=== PATIENT | female | born 1955 | race Caucasian/White ===

== ENCOUNTER → 2023-11-07 10:08 | Outpatient (REF) | payer MEDICARE, OTHER, SELFPAY ==
[2023-11-07 10:59] LABS: % Basophils 0.8 % (0-2); % Eosinophils 2.7 % (0-6); % Immature Granulocytes 0.3 % (0-0.5); % Lymphocytes 25.6 % (20.5-51.1); % Neutrophils 61.6 % (42.2-75.2); Absolute Basophils 0.1 10^3/uL (0-0.2); Absolute Eosinophils 0.2 10^3/uL (0-0.7); Absolute Monocytes 0.7 10^3/uL (0.1-0.6); Absolute Neutrophils 4.9 10^3/uL (1.4-6.5); Hematocrit 40.2 % (37.0-47.0); Hemoglobin 13.5 g/dL (12.0-16.0); Mean Corp Hgb Conc. 33.6 g/dL (33.0-37.0); Mean Corpuscular Hgb 30.5 pg (27.0-31.0); Mean Platelet Volume 10.1 fL (7.4-10.4); Nucleated Red Blood Cells % 0 %; Platelet Count 268 10^3/uL (130-400); Red Blood Cell Count 4.42 10^6/uL (4.20-5.40); Red Cell Dist. Width 12.4 % (11.5-14.5); White Blood Cell Count 7.9 10^3/uL (4.8-10.8)
[2023-11-07 11:44] LABS: Blood Urea Nitrogen 19 mg/dl (7-17); Calcium 9.2 mg/dl (8.4-10.2); Carbon Dioxide 21 mmol/L (22-30); Chloride 106 mmol/L (98-107); Glucose 96 mg/dl (70-99); Potassium 4.4 mmol/L (3.5-5.1); Sodium 136 mmol/L (135-145); eGFR > 60.00
== END ==
LOC: REG 10:08
PROVIDERS: ATTENDING PHYSICIAN Orthopaedic Surgery Hand Surgery; FAMILY PHYSICIAN Family Medicine
DX: Z01.818 Encounter for other preprocedural examination (principal)
CPT/HCPCS: 36415; 80048; 85025; 93005

== ENCOUNTER → 2024-06-17 08:18 | Day surgery (SDC) | payer MEDICARE, OTHER, SELFPAY ==
[2024-06-17 10:43] LABS: Hematocrit 42.3 % (37.0-47.0); Hemoglobin 13.8 g/dL (12.0-16.0); Mean Corp Hgb Conc. 32.6 g/dL (33.0-37.0); Mean Corpuscular Hgb 30.4 pg (27.0-31.0); Mean Corpuscular Volume 93.2 fL (81.0-99.0); Mean Platelet Volume 9.7 fL (7.4-10.4); Platelet Count 298 10^3/uL (130-400); Red Blood Cell Count 4.54 10^6/uL (4.20-5.40); Red Cell Dist. Width 12.1 % (11.5-14.5); White Blood Cell Count 7.2 10^3/uL (4.8-10.8)
[2024-06-17 10:57] LABS: ALT (SGPT) 23 U/L (0-35); AST (SGOT) 21 U/L (14-36); Albumin 4.8 g/dl (3.5-5.0); Alkaline Phosphatase 95 U/L (38-126); Blood Urea Nitrogen 26 mg/dl (7-17); Calcium 9.9 mg/dl (8.4-10.2); Carbon Dioxide 25 mmol/L (22-30); Chloride 101 mmol/L (98-107); Glucose 96 mg/dl (70-99); Potassium 4.3 mmol/L (3.5-5.1); Sodium 141 mmol/L (135-145); Total Bilirubin 0.4 mg/dl (0.2-1.3); Total Protein 7.6 g/dl (6.3-8.2); eGFR > 60.00
[2024-06-17 11:18] LABS: Glycohemoglobin (HgbA1c) 5.2 % (4.0-5.6)
== END ==
LOC: SDSPAT 08:18
PROVIDERS: ATTENDING PHYSICIAN Orthopaedic Surgery; FAMILY PHYSICIAN Family Medicine; REFERRING PHYSICIAN Internal Medicine Cardiovascular Disease
DX: Z01.812 Encounter for preprocedural laboratory examination (principal)
CPT/HCPCS: 85027; 36415; 80053; 83036; 87070

== ENCOUNTER 2024-06-25 06:00 | Day surgery (SDC) | payer MEDICARE, OTHER, SELFPAY ==
--- NOTE | 2024-06-13 10:23 | VNURNOTE ---
Patient is scheduled for an elective L TERRANCE on 06/25/24- she is a same day patient with Dr Neff. Spoke with patient prior to surgery. Introduced role of [facility] Liaison. Patient reports that she lives with her spouse in a MULTI story home.
There are 2 steps to enter through garage and a flight of steps to the second floor.
There is a first floor set up with a bathroom and bedroom she will use.
She has a raised toilet seat, cane and rolling walker.
PCP is Dr Nicci Pratt.
Discussed [facility] joint protocol and post surgical plans.
Reviewed that she will have VN services initially and will then start outpatient PT.
Patient selects [facility] for home care needs and will go to [facility] for outpatient PT. Scheduled for 06/30.
Patient is in agreement with plan and states that her spouse will be home with her. Advised to bring RW day of surgery. Referral placed in [facility].
Plan: [facility] per [facility] joint protocol then outpt PT on 06/30
[2024-06-17 10:13] VITALS: BMI 33.3
[2024-06-18 10:31] VITALS: BMI 33.3
[2024-06-25] VITALS (25 sets, daily range): BP systolic 71–159; BP diastolic 36–102; PULSE 73–109; O2SAT 96
[2024-06-25] MEDS: CELEBREX 200 MG PO (06:11)
[2024-06-25] MEDS: TYLENOL 650 MG PO ×5 (06:11→23:32)
--- NOTE | 2024-06-25 08:40 | SUR.PHASEI ---
patient post op left total hip - spinal anesthesia. has sensation to toes on right - denies sensation on left at hip level and below. at 840 - slight movement of left toes and plantar flexion. sleeps if undisturbed.
[2024-06-25] MEDS: ANCEF 5 IV ×2 (11:14→18:29)
[2024-06-25] MEDS: NORMOSOL-R/PLASMALYTE-A 1000 IV (11:30)
[2024-06-25] MEDS: COMPAZINE 10 MG IV (11:53)
[2024-06-25] MEDS: ProAmatine 5 MG PO (12:58)
[2024-06-25] MEDS: TORADOL 30 MG IV (13:17)
--- NOTE | 2024-06-25 15:39 | W.PN.UPDATE ---
Update Note
Progress Note Update
The patient was initially scheduled to go home same day; however, due to symptomatic orthostasis, she will stay overnight.
L hip OA s/p L TERRANCE w/ Dr Neff 06/25/24
- s/p R TERRANCE, 10/2021, by Dr Neff
DVT prophylaxis - Eliquis 2.5 mg PO BID x4 weeks, b/l venous foot pumps
Orthostatic hypotension (symptomatic) - IVF running
- Midodrine ordered TID w/ SBP parameters
- Orthostatic VS q8h
HTN - diet controlled - monitor BP
Incomplete right bundle branch block
Left anterior fascicular block
PACs with occasional palpitations
- Monitor on tele
Left lower extremity DVT, 1983, provoked by left bunionectomy - start Eliquis
- Frequent and early ambulation as tolerated
- Plasma flow devices HIGHLY encouraged upon d/c
COPD with asthmatic component
Obstructive sleep apnea, non-compliant with CPAP
- Monitor O2
- IS
- Resume inhaler prn
- Add supplemental O2 HS
GERD and Goldsmith's esophagus - continue PPI
IBS with diarrhea - Colace ONLY initially while on post-surgical narcotics
Fibromyalgia - monitor pain and adjust meds prn
Hyperlipidemia
Coronary artery disease, non-obstructive on cardiac cath
Mild valvular disease
TIA, 2014, without residual deficits
Colon and gastric polyps
Diverticulosis with history of diverticulitis
Fatty liver disease
Gastroparesis
Restless leg syndrome
Multilevel degenerative disc disease
Remote migraines
Hypothyroidism
Uterine fibroids, status post partial hysterectomy
Lichen sclerosus
Osteopenia
Anti-cardiolipin antibody positive
Glaucoma
Depression
Anxiety
Insomnia
Obesity, BMI 33.3
Remote history of tobacco abuse.
[2024-06-25] MEDS: ROXICODONE 2.5 MG PO ×2 (17:16→23:40)
[2024-06-25] MEDS: CELEXA PO (18:29)
[2024-06-25] MEDS: NSS 1000 IV (18:29)
[2024-06-25] MEDS: SYNTHROID PO (18:31)
[2024-06-25] MEDS: PROTONIX PO (18:31)
[2024-06-25] MEDS: SINGULAIR PO (18:31)
[2024-06-25] MEDS: VITAMIN B-12 PO (18:31)
--- NOTE | 2024-06-25 18:39 | PTCARENOTE ---
Addendum entered by Shawna Head RN 06/25/24 19:22:
Patient placed on telemetry as ordered. Sinus rhythm to sinus tach.
Original Note:
Received patient from [facility] via stretcher in stable condition. Orthostatic vital signs done on arrival. Charted in worklist. Patient denied dizziness when standing and was asymptomatic. Voided in bedside commode on arrival. Right hip dressing with
small amount of drainage. Patient oriented to unit. Call massey in reach.
[2024-06-25] MEDS: ELIQUIS 2.5 MG PO (20:22)
[2024-06-25] MEDS: BACTROBAN 2% OINTMENT 1 APPLIC NASAL (20:22)
[2024-06-25] MEDS: COSOPT EYE DROPS 1 DROP BOTH EYES (20:43)
[2024-06-25] MEDS: XALATAN OPHTHALMIC SOLUTION 1 DROP BOTH EYES (20:43)
[2024-06-26] VITALS (7 sets, daily range): BP systolic 120–165; BP diastolic 58–79; PULSE 77–102; O2SAT 96–97
[2024-06-26] MEDS: ANCEF 5 IV (01:34)
[2024-06-26] MEDS: TYLENOL 650 MG PO ×3 (03:58→12:32)
[2024-06-26] MEDS: SYNTHROID 25 MCG PO (07:39)
[2024-06-26] MEDS: BACTROBAN 2% OINTMENT 1 APPLIC NASAL (08:46)
[2024-06-26] MEDS: PROTONIX 40 MG PO (08:48)
[2024-06-26] MEDS: VITAMIN D3 (cholecalciferol) 125 MCG PO (08:48)
[2024-06-26] MEDS: CELEXA 20 MG PO (08:48)
[2024-06-26] MEDS: COSOPT EYE DROPS 1 DROP BOTH EYES (08:48)
[2024-06-26] MEDS: VITAMIN B-12 1000 MCG PO (08:48)
[2024-06-26] MEDS: ELIQUIS 2.5 MG PO (08:48)
[2024-06-26] MEDS: SINGULAIR 10 MG PO (08:48)
[2024-06-26] MEDS: TRICOR 48 MG PO (08:53)
[2024-06-26] MEDS: ROXICODONE 2.5 MG PO (09:05)
--- NOTE | 2024-06-26 09:36 | W.PN.ORTHO ---
Today's Communication / Plan
-
Await PT and OT recs.
D/c later today if remaining clinically stable.
Assessment
.
Distal Motor Intact: Yes
Dressing:
Scant old incisional bleeding.
Assessment:
The patient was initially scheduled to go home same day; however, due to symptomatic orthostasis after surgery, she did stay overnight.
L hip OA s/p L TERRANCE w/ Dr Neff 06/25/24
- s/p R TERRANCE, 10/2021, by Dr Neff
DVT prophylaxis - Eliquis 2.5 mg PO BID x4 weeks, b/l venous foot pumps
Orthostatic hypotension (symptomatic) - s/p IVF
- Midodrine ordered TID w/ SBP parameters -> only needed 1x thankfully
- Orthostatic VS q8h stable by POD 1
HTN - diet controlled - BPs stable
Incomplete right bundle branch block
Left anterior fascicular block
PACs with occasional palpitations
- Rhythm stable on tele
Left lower extremity DVT, 1983, provoked by left bunionectomy - start Eliquis
- Frequent and early ambulation as tolerated
- Plasma flow devices HIGHLY encouraged upon d/c
COPD with asthmatic component
Obstructive sleep apnea, non-compliant with CPAP
- O2 stable on RA
- IS
- Resumed inhaler prn
- Added supplemental O2 HS while admitted
GERD and Goldsmith's esophagus - continue PPI
IBS with diarrhea - Colace ONLY initially while on post-surgical narcotics
Fibromyalgia - pain well controlled by POD 1
Hyperlipidemia
Coronary artery disease, non-obstructive on cardiac cath
Mild valvular disease
TIA, 2014, without residual deficits
Colon and gastric polyps
Diverticulosis with history of diverticulitis
Fatty liver disease
Gastroparesis
Restless leg syndrome
Multilevel degenerative disc disease
Remote migraines
Hypothyroidism
Uterine fibroids, status post partial hysterectomy
Lichen sclerosus
Osteopenia
Anti-cardiolipin antibody positive
Glaucoma
Depression
Anxiety
Insomnia
Obesity, BMI 33.3
Remote history of tobacco abuse.
Plan
.
Surgery / Date: Mady CARLOS w/ Dr Neff 06/25/24
DVT Prophylaxis: Other (Eliquis )
Activity:
Out of bed.
PT/OT
Discharge Plan: Home w/ Outpatient PT
Subjective
.
.:
Patient examined resting in her chair.
L hip pain overall well tolerated w/ minimal pain meds.
Denies any other new significant complaints.
Eager for potential d/c today.
Vital Signs and Labs
.
Vital Signs and Labs:
Temp Pulse Resp BP Pulse Ox
98.4 F 100 18 149/74 95
06/26/24 08:00 06/26/24 08:00 06/26/24 08:00 06/26/24 08:00 06/26/24 08:00
Non-invasive Hgb result: 12.4
Physical Exam
-
HEENT: No pallor, cyanosis, or jaundice. Throat clear.
NECK: Supple. No JVD.
RESPIRATORY: Lungs clear to auscultation.
CVS: S1, S2 normal. RRR.�
ABDOMEN: Soft, non-tender. No distension. Obese.
EXTREMITIES: Strength equal, no calf pain with palpation/dorsiflexion. Calves soft.
TILE LAYER DRAINAGE: AOx3. No focal deficits. balloon design printer grossly intact
--- NOTE | 2024-06-26 10:15 | CM ---
Reviewed the chart notes and spoke with the patient at the bedside. The patient resides with spouse in a two story home with three steps to enter. There is a first floor master bedroom. The patient has a rolling walker, cane, and a raised toilet
seat. The patient reports no VN or SNF in the past. [facility] The patient anticipates starting outpatient therapy on Sunday. No VN need. CM continues to be available to
patient/family and is monitoring medical plan for needs at discharge.
Plan: Discharge to home today. No additional needs identified at this time.
--- NOTE | 2024-06-26 12:33 | W.DS.TRANS ---
DC Summary - Thread Spooler
-
Discharge Instructions:
Discharge Diagnosis/Procedures L hip OA s/p L TERRANCE w/ Dr Neff 06/25/24
Diet Other diet
Additional Diets Diabetic carb controlled x1 week for wound
healing/infection prevention
Activity As tolerated,With Walker
Driving Restrictions Not until seen by your Dr
Bathing Restrictions OK to Shower
Other Services PT
Wound Care Dressing to be removed 1 week post-surgery.
Instructions:
Stand-Alone Forms: Total Hip/Knee Replacement D/C
Changes to Home Medications: Yes
Discharge Medications:
DC Medications w/original date entered in [facility]
albuterol sulfate 90 mcg/actuation aerosol inhaler 2 puff inhalation Q4HPRN PRN asthma 09/16/21
cholecalciferol (vitamin D3) 125 mcg (5,000 unit) disintegrating tablet 5,000 unit PO DAILY Supplement 09/16/21
citalopram 20 mg tablet 20 mg PO DAILY Mental Health/Anxiety 09/16/21
cyanocobalamin (vitamin B-12) 1,000 mcg tablet 1,000 mcg PO DAILY Supplement 09/16/21
fenofibrate 54 mg tablet 54 mg PO MOTH TRIGLYCERIDES 09/16/21
fluticasone propionate 50 mcg/actuation nasal spray,suspension 2 spray intranasal DAILYPRN PRN allergies 09/16/21
montelukast 10 mg tablet 10 mg PO DAILY ASTHMA 09/16/21
pantoprazole 40 mg tablet,delayed release 40 mg PO DAILY Gastrointestinal issue 09/16/21
clobetasol-emollient 0.05 % topical cream 1 applic topical DAILYPRN PRN skin issues 09/20/21
mupirocin 2 % topical ointment 1 applic intranasal BID #1 tube 09/20/21
acetaminophen 500 mg tablet (Tylenol Extra Strength) 1,000 mg (2 x 500 mg) PO Q6H ##0 10/12/21
Cbd Oil 1 dose sublingual PRN PRN sleep 06/18/24
alprazolam 0.25 mg tablet (Xanax) 0.25 mg PO BID PRN anxiety 06/18/24
cetirizine 10 mg capsule (Zyrtec) 10 mg PO DAILY PRN allergies 06/18/24
dorzolamide 22.3 mg-timolol 6.8 mg/mL eye drops 1 drp BOTH EYES BID Eye Condition 06/18/24
latanoprost 0.005 % eye drops 1 drp BOTH EYES QPM 06/18/24
levothyroxine 25 mcg tablet 25 mcg PO DAILY 06/18/24
multivitamin 1 tab PO DAILY 06/18/24
apixaban 2.5 mg tablet (Eliquis) 2.5 mg PO BID Blood clot prevention/tx #60 tabs 06/25/24
docusate sodium 100 mg capsule (Colace) 100 mg PO BID #30 caps 06/25/24
hydrochlorothiazide 25 mg tablet 12.5 mg (1/2 x 25 mg) PO DAILY PRN elevated blood pressure #1 tab 06/25/24
irbesartan 300 mg tablet 300 mg PO DAILY #0 tabs 06/25/24
ondansetron HCl 4 mg tablet 4 mg PO Q6H PRN nausea and vomiting #30 tabs 06/25/24
oxycodone 5 mg tablet 5 - 10 mg (1 - 2 x 5 mg) PO Q6H PRN moderate-severe pain #30 tabs 06/25/24
dexamethasone 4 mg tablet 4 mg PO Q12 PRN breakthrough pain #6 tabs 06/26/24
sennosides 8.6 mg tablet (Senna Laxative) 17.2 mg (2 x 8.6 mg) PO BIDPRN PRN constipation #30 tabs 06/26/24
Home Medication Changes
apixaban 2.5 mg tablet (Eliquis) 2.5 mg PO BID Blood clot prevention/tx #60 tabs 06/25/24
docusate sodium 100 mg capsule (Colace) 100 mg PO BID #30 caps 06/25/24
ondansetron HCl 4 mg tablet 4 mg PO Q6H PRN nausea and vomiting #30 tabs 06/25/24
oxycodone 5 mg tablet 5 - 10 mg (1 - 2 x 5 mg) PO Q6H PRN moderate-severe pain #30 tabs 06/25/24
dexamethasone 4 mg tablet 4 mg PO Q12 PRN breakthrough pain #6 tabs 06/26/24
sennosides 8.6 mg tablet (Senna Laxative) 17.2 mg (2 x 8.6 mg) PO BIDPRN PRN constipation #30 tabs 06/26/24
Pending Results: No
== END 2024-06-26 13:43 | disposition home or self-care (01) ==
LOC: SDS 06:00
PROVIDERS: ATTENDING PHYSICIAN Orthopaedic Surgery; FAMILY PHYSICIAN Family Medicine
DX: M16.12 Unilateral primary osteoarthritis, left hip (principal)
CPT/HCPCS: 27130; 73502; 97110; 97116; 97162; 97166; 97530; 97535; C1713; C1776

== ENCOUNTER → 2024-11-25 09:37 | Outpatient (REF) | payer MEDICARE, OTHER, SELFPAY | LOC: HWRAD 09:37 | PROVIDERS: ATTENDING PHYSICIAN Podiatrist Foot & Ankle Surgery; FAMILY PHYSICIAN Family Medicine | DX: M19.072 Primary osteoarthritis, left ankle and foot (principal) | CPT/HCPCS: 73610 ==

== ENCOUNTER → 2025-04-13 09:37 | Outpatient (REF) | payer MEDICARE, OTHER, SELFPAY | LOC: DHSLP 09:37 | PROVIDERS: ATTENDING PHYSICIAN Internal Medicine Critical Care Medicine; FAMILY PHYSICIAN Family Medicine | DX: G47.33 Obstructive sleep apnea (adult) (pediatric) (principal) | CPT/HCPCS: 95800 ==